=== PATIENT | male | born 1990 | race African-American/Black ===

== ENCOUNTER 2020-11-11 19:41 | Emergency (ER) | payer SELFPAY ==
[~2020-11-11] VITALS: Ht 165.1 cm; Wt 81.6 kg
[2020-11-11 19:43] VITALS: BP 128/69
[2020-11-11] MEDS ORDERED: CEPH500B PO (21:26)
[2020-11-11] MEDS ORDERED: CEPHALEXIN 500 MG CAPSULE PO ONE (21:30)
[2020-11-11] MEDS ORDERED: GENTAMICIN SULFATE 0.3% 5ML DROPS OS SCH (21:30)
[2020-11-11 22:12] VITALS: BP 122/65
== END 2020-11-11 22:13 | disposition home or self-care (01) ==
LOC: EDH 19:41
DX: H10.32 Unspecified acute conjunctivitis, left eye (principal)